=== PATIENT | male | born 1990 | race Caucasian/White ===

== ENCOUNTER 2017-07-26 17:16 | Emergency (ER) | payer MEDICAID ==
[~2017-07-26] VITALS: Wt 82.6 kg
[2017-07-26] MEDS ORDERED: IBUPROFEN 600 MG TAB PO ONE (19:30)
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
--- NOTE | 2017-07-26 20:41 | RADRPT ---
PROCEDURE: XR Knee. CLINICAL INDICATION: Left knee pain. TECHNIQUE: Three views of the left knee. COMPARISON: None available FINDINGS: There is no acute fracture or dislocation. The joint spaces are preserved. No joint effusion is id entified. IMPRESSION: 1. No acute fracture or dislocation of the left knee. RPTAT: HTAR .Charlie Goodrich MD, MD Date Time Electronically viewed and signed by .Charlie Goodrich MD, on 07/26/2017 20:41 .R/
--- NOTE | 2017-07-26 20:42 | RADRPT ---
PROCEDURE: XR Tibia and Fibula. CLINICAL INDICATION: Left leg pain. TECHNIQUE: AP and lateral views of the left tibia and fibula. COMPARISON: None available. FINDINGS: No fracture or dislocation is identified. The joint spaces are preserved There is no significant s oft tissue swelling. IMPRESSION: 1. No fracture or dislocation of the left tibia and fibula. RPTAT: HTAR .Charlie Goodrich MD, MD Date Time Electronically viewed and signed by .Charlie Goodrich MD, MD on 07/26/2017 20:42 .R/
[2017-07-26] MEDS ORDERED: IBUP-1542 PO (20:54)
[2017-07-26 21:06] VITALS: BP 118/76; PULSE 70; RESP 17; TEMP 98.1
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
== END 2017-07-26 21:07 | disposition home or self-care (01) ==
LOC: FTE 17:16
DX: M79.672 Pain in left foot (principal); F17.210 Nicotine dependence, cigarettes, uncomplicated
CPT/HCPCS: 73562; 73590; 73630; Z7610

== ENCOUNTER 2017-09-16 17:45 | Emergency (ER) | END 2017-09-16 20:25 | disposition home or self-care (01) ==

== ENCOUNTER 2019-03-02 10:05 | Emergency (ER) | payer MEDICAID, OTHER ==
[~2019-03-02] VITALS: Ht 177.8 cm; Wt 75.6 kg
[~2019-03-02 10:05] MED LIST: HYDR-4011 PO; IBUP-1542 PO
[2019-03-02 10:20] VITALS: BP 127/77; PULSE 101; RESP 18; Ht 177.8 cm; Wt 75.6 kg
[2019-03-02] MEDS ORDERED: BACI28.34 TOP (11:08)
[2019-03-02] MEDS ORDERED: DIPHTH/TET/ACEL PERTUSS (ADULT) 0.5 ML VIAL IM* ONE (12:00)
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
== END 2019-03-02 11:55 | disposition home or self-care (01) ==
LOC: FTE 10:05
DX: S60.512A Abrasion of left hand, initial encounter (principal); S80.812A Abrasion, left lower leg, initial encounter; V18.4XXA Pedal cycle driver injured in noncollision transport accident in traffic accident, initial encounter
CPT/HCPCS: 90715; Z7502; 99282